=== PATIENT | male | born 1985 | race Caucasian/White ===

== ENCOUNTER 2022-12-20 12:41 | Inpatient (IN) ==
[2022-12-20] MEDS ORDERED: methylPREDNISolone 125 MG/2 ML VIAL IV STA (14:19)
[2022-12-20] MEDS ORDERED: ALBUT/IPRATROP 3MG/0.5MG NEB 3 ML VIAL NEB ONE (14:19)
[2022-12-20 14:25] LABS: Influenza A virus by PCR Negative (Neg); Influenza B virus by PCR Negative (Neg); RSV by PCR Negative (Neg); SARS CoV2 RNA(COVID-19) Ceph NEGATIVE (Negative)
--- NOTE | 2022-12-20 14:51 | Electrocardiogram Report ---
Test Reason : Blood Pressure : / mmHG Vent. Rate : 103 BPM Atrial Rate : 103 BPM P-R Int : 136 ms QRS Dur : 102 ms QT Int : 362 ms P-R-T Axes : 048 026 018 degrees QTc Int : 474 ms Sinus tachycardia Nonspecific T wave abnormality Abnormal ECG When compared with ECG of 28-APR-2022 10:38, No significant change was found Confirmed by Jorje Beach ([id number]) on 12/20/2022 2:51:06 PM Referred By: ED Confirmed By:Jorje Beach
[2022-12-20 14:59] LABS: Basophils # (auto) 0.03 K/uL (0-0.2); Basophils % (auto) 0.5 %; Eosinophils # (auto) 0.05 K/uL (0-0.50); Eosinophils % (auto) 0.9 %; Hematocrit (blood only) 44.5 % (42.0-52.0); Hemoglobin 14.9 g/dl (14.0-18.0); Immature Granulocytes # (auto) 0.02 K/uL (0.01-0.20); Immature Granulocytes % (auto) 0.3 %; Lymphocytes # (auto) 0.81 K/uL (1.2-3.4); Mean Corpuscular Hemoglobin 29.6 pg (25.0-34.0); Mean Corpuscular Hgb Conc 33.5 g/dL (32.0-36.0); Mean Corpuscular Volume 88.3 fL (80.0-100.0); Mean Platelet Volume 10.7 fL (9.4-12.4); Monocytes # (auto) 0.61 K/uL (0.11-0.59); Monocytes % (auto) 10.6 %; Neutrophils # (auto) 4.25 K/uL (1.40-6.50); Neutrophils % (auto) 73.7 %; Platelet Count 212 K/uL (130-400); RDW Coefficient of Variation 13.3 % (11.5-14.5); RDW Standard Deviation 43.4 fL (36.4-46.3); Red Blood Count 5.04 M/uL (4.70-6.10); White Blood Count 5.77 K/ul (4.8-10.8)
--- NOTE | 2022-12-20 15:12 | XRay Report ---
XR chest 1V portable HISTORY: Shortness of breath. Chest pain, nonspecific COMPARISON: Chest 04/28/2022. FINDINGS: No pneumothorax. No pleural effusions. There are low lung volumes. The cardiac silhouette r emains enlarged. No new focal lung consolidations to suggest a pneumonia. No evidence for pulmonary e elier. Stable lucent lesion within the medial right clavicle. IMPRESSION: No significant change compared to the prior study. No acute process. ACT 112: Negative or not required by law. Electronically signed by: Lenny Kellogg M.D. 12/20/2022 3:11 PM
[2022-12-20 15:30] LABS: Albumin Level 4.3 gm/dl (3.4-5.0); Calcium 9.8 mg/dl (8.5-10.1); Potassium 3.6 mmol/L (3.5-5.1)
[2022-12-20 15:36] LABS: Albumin Globulin Ratio 1.2 (0.9-2); BUN Creatinine Ratio 20.2 (10-20); Creatinine Clr Calc Pharmacy 138.9 ml/min; Est GFR (African American) 111.5 ml/min; Est GFR (Non-African American) 96.2 ml/min; Globulin 3.5 gm/dl (2.5-4.0); Total Protein 7.8 gm/dl (6.0-8.3); Troponin I High Sensitivity 5.3 pg/ml (0-20)
--- NOTE | 2022-12-20 15:52 | Emergency Department Note ---
Impression & Plan Pneumonia, Asthma, Shortness of breath ED Provider Note NAME: ANDRY BEAUCHAMP AGE: 37 SEX: M : 1985 ARRIVES VIA: Walk-In INFORMANT: Patient ED PROVIDER(S): Fabrice Glover DO CHIEF COMPLAINT: shortness of breath HPI: Patient is a 37-year-old male with a past medical history schizophrenia, asthma, hypertension, GERD who presents to the ER for cough congestion and shortness of breath which has been going on for the past month. He notes it has been getting worse. He did cough up some blood over the weekend. Shortness of breath is significantly worse with exertion. He admits to chest pain which has been present since this started which is mainly present with coughing. Shortness of breath is worse with coughing as well. Denies any belly pain nausea vomiting or diarrhea. Admits to a surgery on his left lower extremity back in last February. No other exacerbating or remitting factors. PAST MEDICAL HISTORY:See Below PAST SURGICAL HISTORY:See Below FAMILY HISTORY:See Below SOCIAL HISTORY:See Below HOME MEDICATIONS:See Below ALLERGIES:See Below VITALS:See Below PHYSICAL EXAMINATION: GENERAL: Sitting up in bed, alert, morbidly obese, disheveled, tachypneic and dyspneic EYE EXAM: normal conjunctiva. PERRL and EOM's grossly intact. OROPHARYNX: mucous membranes are moist LUNGS: Diminished bilaterally with poor air movement. Normal chest wall mechanics HEART: no murmurs, S1 normal and S2 normal ABDOMEN: abdomen soft, non-tender, normo-active bowel sounds, no masses, no rebound or guarding. UPPER EXTREMITIES: upper extremities are grossly normal. LOWER EXTREMITIES: Pitting edema in the bilateral lower extremities NEURO EXAM: Normal sensorium, cranial nerves II-XII grossly intact, normal speech, no gross weakness of arms, no gross weakness of legs. MEDICAL DECISION MAKING: Patient is a 37-year-old male with a past medical history of asthma that pr esents to the ER for cough congestion which has been present for the past month but getting significantly worse recently. External records were reviewed. IV was established blood work was obtained. Patient was tachycardic. Was tachypneic initially upon arrival. Was given neb treatments and steroids. Chest x-ray was clean. Labs show no significant leukocytosis or anemia. BMP was unremarkable. T. bili at 1.0. Mild transaminitis. Troponin was negative. COVID flu and RSV was negative. CT angio chest shows bronchogenic pneumonia. Patient was significantly tachypneic and tachycardic. Discussed with the [facility] and patient was admitted for further work-up management and treatment. Patient was given IV fluids nebs, steroids and antibiotics while here. Triage Nursing notes reviewed. Limited review of prior medical records performed Vital Signs: reviewed and remarkable for HTN and tachy Differential diagnosis: Differential diagnoses includes but is not limited to pneumonia, bronchitis, COPD/Asthma exacerbation, pneumothorax, pulmonary embolism, congestive heart failure, acute coronary syndrome ER treatment provided: See below Diagnostics interpreted by me include EKG and cardiac monitoring as listed below: -Cardiac Monitoring: An order was placed for continuous cardiac monitoring. The monitor shows a rate of 101 with sinus rhythm. -ECG: Sinus tachycardia rate of 103 Normal axis No PVCs QTc 474 -Laboratory studies:Interpreted by me as stated above in MDM and shown below. Imaging studies: Xrays: As interpreted by me: Portable AP upright 1 view of the chest was unremarkable CTs show: CT angio of the chest shows bronchopneumonia Consultation(s): Discussed with the [facility]ist for further evaluation management and treatment Procedures:none Critical Care: None Past Med/Surg History Medical History (Updated 12/20/22 @ 16:51 by Fabrice Glover DO) Asthma Well controlled GERD (gastroesophageal reflux disease) History of IBS Hypertension Hypothyroidism Paranoid schizophrenia Pneumonia Hx 2003 Post-nasal drip Seasonal allergies Sleep apnea No device currently Surgical History History of colonoscopy History of esophagogastroduodenoscopy (EGD) History of tonsillectomy Family History Other Adopted person Social History Smoking Status: Never smoker Second Hand Exposure: No; Hx Alcohol Use: No Hx Substance Use: No Preferred Language: Upper Sorbian Communication Ability: Effective 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 Goods Required: No Beliefs That Will Affect Care: None Current Living Situation: Alone Feels Safe at Home: Yes Assistive Devices: Brace/Splint/Immobilizer, Crutches and Glasses Allergies Allergies Allergy/AdvReac Type Severity Reaction Status Date / Time No Known Allergies Allergy Unknown Verified 04/09/22 08:17 Home Meds Home Medications Medication Instructions Recorded Confirmed albuterol sulfate 90 mcg/actuation 2 inh inhalation Q4H PRN sob 02/21/22 04/09/22 aerosol inhaler cannabidiol 100 mg/mL oral solution 90 mg PO DAILY PRN Pain 02/21/22 04/09/22 clozapine 50 mg tablet 50 mg PO HS 02/21/22 04/09/22 diphenhydramine HCl 25 mg tablet 25 mg PO HS PRN sleep/allergy 02/21/22 04/09/22 (Benadryl Allergy) famotidine 20 mg tablet 20 mg PO HS 02/21/22 04/09/22 fluticasone propionate 50 2 spray intranasal HS 02/21/22 04/09/22 mcg/actuation nasal spray,suspension guaifenesin 600 mg tablet, 600 mg PO BID 02/21/22 04/09/22 extended release 12 hr (Mucinex) hydrochlorothiazide 50 mg tablet 25 mg PO QAM 02/21/22 04/09/22 levothyroxine 25 mcg tablet 25 mcg PO QAM 02/21/22 04/09/22 (Synthroid) lisinopril 20 mg tablet 20 mg PO HS 02/21/22 04/09/22 loperamide 2 mg capsule 2 mg PO BID PRN Diarrhea 02/21/22 04/09/22 multivitamin 1 tab PO QAM 02/21/22 04/09/22 chlorpromazine 50 mg tablet 50 mg PO HS 04/09/22 04/09/22 diphenoxylate-atropine 2.5 1 tab PO QAM 04/09/22 04/09/22 mg-0.025 mg tablet pantoprazole 40 mg tablet,delayed 40 mg PO DAILY 05/26/22 release Previous Rx's Medication Instructions Recorded benzonatate 100 mg capsule 100 mg PO TID PRN cough #15 caps 04/28/22 Results & Data (ED) Vital Signs Vital Signs - 24 hr 12/20/22 13:02 12/20/22 15:40 12/20/22 15:40 Temperature 36.6 C Temperature Source Temporal Artery Scan Pulse Rate 105 H 105 H Pulse Rate from SpO2 Sensor 105 H Respiratory Rate 19 19 Blood Pressure 142/90 H 141/89 H Blood Pressure Mean 107 106 Pulse Oximetry 92 95 Oxygen Delivery Method Room Air Sepsis Recent Fever Within 48 Hours No Sepsis New/Unexplained Change in Mental Status No Sepsis Action Taken by Nursing No Action Required 12/20/22 15:50 12/20/22 16:36 Temperature Temperature Source Pulse Rate 101 H 105 H Pulse Rate from SpO2 Sensor 103 H Respiratory Rate 22 Blood Pressure Blood Pressure Mean Pulse Oximetry 96 Oxygen Delivery Method Sepsis Recent Fever Within 48 Hours Sepsis New/Unexplained Change in Mental Status Sepsis Action Taken by Nursing Laboratory Data 12/20/22 14:25 12/20/22 14:25 Lab Results 12/20/22 12/20/22 12/20/22 Range/Units 14:25 14:25 Unknown WBC 5.77 (4.8-10.8) K/ul RBC 5.04 (4.70-6.10) M/uL Hgb 14.9 (14.0-18.0) g/dl Hct 44.5 (42.0-52.0) % MCV 88.3 (80.0-100.0) fL MCH 29.6 (25.0-34.0) pg MCHC 33.5 (32.0-36.0) g/dL RDW Std Deviation 43.4 (36.4-46.3) fL RDW Coeff of Bere 13.3 (11.5-14.5) % Plt Count 212 (130-400) K/uL MPV 10.7 (9.4-12.4) fL Immature Gran % (Auto) 0.3 % Neut % (Auto) 73.7 % Lymph % (Auto) 14.0 % Lassen % (Auto) 10.6 % Eos % (Auto) 0.9 % Baso % (Auto) 0.5 % Neut # (Auto) 4.25 (1.40-6.50) K/uL Lymph # (Auto) 0.81 L (1.2-3.4) K/uL Lassen # (Auto) 0.61 H (0.11-0.59) K/uL Eos # (Auto) 0.05 (0-0.50) K/uL Baso # (Auto) 0.03 (0-0.2) K/uL Immature Gran # (Auto) 0.02 (0.01-0.20) K/uL Sodium 137 (136-145) mmol/L Potassium 3.6 (3.5-5.1) mmol/L Chloride 100 (98-107) mmol/L Carbon Dioxide 29 (21-32) mmol/L Anion Gap 8 (3-11) BUN 20 (6-23) mg/dl Creatinine 0.99 (0.6-1.4) mg/dl Est Cr Clr Drug Dosing 138.9 ml/min Est GFR ( Amer) 111.5 ml/min Est GFR (Non-Af Amer) 96.2 ml/min BUN/Creatinine Ratio 20.2 H (10-20) Glucose 101 H (70-99(Fasting)) mg/dl Calcium 9.8 (8.5-10.1) mg/dl Total Bilirubin 1.0 (0.2-1.0) mg/dl AST 42 H (13-39) U/L ALT 65 H (7-52) U/L Alkaline Phosphatase 79 (34-104) U/L Troponin I High Sens 5.3 (0-20) pg/ml Total Protein 7.8 (6.0-8.3) gm/dl Albumin 4.3 (3.4-5.0) gm/dl Globulin 3.5 (2.5-4.0) gm/dl Albumin/Globulin Ratio 1.2 (0.9-2) Lipase 11 (11-82) U/L SARS-CoV-2 (PCR) NEGATIVE (Negative) Influenza Type A (PCR) Negative (Neg) Influenza Type B (PCR) Negative (Neg) RSV (RT-PCR) Negative (Neg) Administered Medications Discontinued Medications Albuterol (Albut/Ipratrop 3mg/0.5mg Neb 3 Ml Vial) 12 ml NEB ONE ONE; Protocol Stop: 12/20/22 14:20 Last Admin: 12/20/22 15:00 Dose: 12 ml Documented By: JARAD Ioversol (Optiray 320 500ml) 99 ml IV ONCE ONE Stop: 12/20/22 16:08 Last Admin: 12/20/22 16:07 Dose: 99 ml Documented By: ROMULO Methylprednisolone (Methylprednisolone 125 Mg/2 Ml Vial) 60 mg IV NOW STA Stop: 12/20/22 14:20 Last Admin: 12/20/22 15:00 Dose: 60 mg Documented By: JARAD Imaging Data Radiologist's Impression: Chest X-Ray 12/20/22 14:12 XR chest 1V portable HISTORY: Shortness of breath. Chest pain, nonspecific COMPARISON: Chest 04/28/2022. FINDINGS: No pneumothorax. No pleural effusions. There are low lung volumes. The cardiac silhouette remains enlarged. No new focal lung consolidations to suggest a pneumonia. No evidence for pulmonary edema. Stable lucent lesion within the medial right clavicle. IMPRESSION: No significant change compared to the prior study. No acute process. ACT 112: Negative or not required by law. Electronically signed by: Lenny Kellogg M.D. 12/20/2022 3:11 PM Chest CTA 12/20/22 15:48 CT angio chest PE protocol CT DOSE: 891.67 mGy.cm HISTORY: 37 years-old Male with PE. Acute cough with shortness of breath TECHNIQUE: Multiple CTA images of the chest were obtained after the intravenous administration of 99 ml Optiray. Coronal and sagittal MIPS were obtained from the axial data set and were submitted for review. All measurements were obtained according to NASCET criteria. A dose lowering technique was utilized adhering to the principles of ALARA. COMPARISON: CTA chest 04/09/2022 FINDINGS: CTA: Heart is normal in size. No pericardial effusion. Unremarkable thoracic aorta. I ll-defined apparent filling defect is noted within the segmental branch of the pulmonary arteries to the lingula on image 140 series 4 which is likely artifactual. No occlusive pulmonary embolus identified. CT CHEST: Unremarkable thyroid. No lymphadenopathy. There is no pneumothorax or overt pulmonary edema. Mild bronchial wall thickening. Mild patchy nodular consolidative foci noted within the left lower lobe and lingula and to lesser extent right lower lobe. Central airways are patent. Hepatomegaly with hepatic steatosis. No acute process of the imaged upper abdomen. Unremarkable soft tissues. No acute fracture identified. Unchanged appearance of the mid and medial aspects of the right clavicle. Mild bridging osteophytic spurring throughout the thoracic spine. IMPRESSION: 1. Mild patchy left greater than right bibasilar nodular consolidative foci suggestive of bronchopneumonia. 2. No pulmonary emboli identified. 3. Hepatic steatosis. 4. No lymphadenopathy. ACT 112: Negative or not required by law. The above report was generated using voice recognition software. It may contain grammatical, syntax or spelling errors. Electronically signed by: Joseph Trujillo M.D. 12/20/2022 4:22 PM Discharge Plan Visit Data Chief Complaint: Cough Stated Complaint: REALLY NASTY COUGH, SHORT OF BREATH, CHEST PAIN ED Provider: Fabrice Glover Discharge Problem: Pneumonia, Asthma, Shortness of breath Forms Stand Alone Forms: [facility] Prescriptions Prescriptions: No Action pantoprazole 40 mg tablet,delayed release (DR/EC) 40 mg PO DAILY benzonatate 100 mg capsule 100 mg PO TID PRN (Reason: cough) Qty: 15 0RF multivitamin Tablet 1 tab PO QAM loperamide 2 mg Capsule 2 mg PO BID PRN (Reason: Diarrhea) hydrochlorothiazide 50 mg Tablet 25 mg PO QAM lisinopril 20 mg Tablet 20 mg PO HS levothyroxine [Synthroid] 25 mcg Tablet 25 mcg PO QAM famotidine 20 mg Tablet 20 mg PO HS diphenhydramine HCl [Benadryl Allergy] 25 mg Tablet 25 mg PO HS PRN (Reason: sleep/allergy) albuterol sulfate 90 mcg/actuation Hfa Aerosol Inhaler 2 inh INHALATION Q4H PRN (Reason: sob) fluticasone propionate 50 mcg/actuation [place],Suspension 2 spray INTRANASAL HS clozapine 50 mg Tablet 50 mg PO HS guaifenesin [Mucinex] 600 mg Tablet Extended Release 12hr 600 mg PO BID cannabidiol 100 mg/mL Solution 90 mg PO DAILY PRN (Reason: Pain) diphenoxylate-atropine 2.5-0.025 mg tablet 1 tab PO QAM chlorpromazine 50 mg tablet 50 mg PO HS Referrals Referrals: Kenia Oshea DO [Primary Care Provider] -
[2022-12-20] MEDS ORDERED: OPTIRAY 320 500ml IV ONE (16:07)
--- NOTE | 2022-12-20 16:24 | CT Scan Report ---
CT angio chest PE protocol CT DOSE: 891.67 mGy.cm HISTORY: 37 years-old Male with PE. Acute cough with shortness of breath TECHNIQUE: Multiple CTA images of the chest were obtained after the intravenous administration of 99 ml Optiray. Coronal and sagittal MIPS were obtained from the axial data set and were submitted for [employer]. All measurements were obtained according to NASCET criteria. A dose lowering technique was ut ilized adhering to the principles of ALARA. COMPARISON: CTA chest 04/09/2022 FINDINGS: CTA: Heart is normal in size. No pericardial effusion. Unremarkable thoracic aorta. Ill-defined apparent f illing defect is noted within the segmental branch of the pulmonary arteries to the lingula on image 140 series 4 which is likely artifactual. No occlusive pulmonary embolus identified. CT CHEST: Unremarkable thyroid. No lymphadenopathy. There is no pneumothorax or overt pulmonary edema. Mild bro nchial wall thickening. Mild patchy nodular consolidative foci noted within the left lower lobe and l ingula and to lesser extent right lower lobe. Central airways are patent. Hepatomegaly with hepatic steatosis. No acute process of the imaged upper abdomen. Unremarkable soft tissues. No acute fracture identified. Unchanged appearance of the mid and medial aspects of the righ t clavicle. Mild bridging osteophytic spurring throughout the thoracic spine. IMPRESSION: 1. Mild patchy left greater than right bibasilar nodular consolidative foci suggestive of bronchopneu monia. 2. No pulmonary emboli identified. 3. Hepatic steatosis. 4. No lymphadenopathy. ACT 112: Negative or not required by law. The above report was generated using voice recognition software. It may contain grammatical, syntax o r spelling errors. Electronically signed by: Joseph Trujillo M.D. 12/20/2022 4:22 PM
[2022-12-20] MEDS ORDERED: AZITHROMYCIN 500 MG in DEXTROSE 5% 250 ML IV SCH (16:40)
[2022-12-20] MEDS ORDERED: cefTRIAXone SODIUM 2,000 MG/70 ML BAG IV STA (16:40)
--- NOTE | 2022-12-20 17:27 | History & Physical Report ---
Date of Service December 20, 2022 Assessment & Plan (1) Pneumonia: (2) Asthma: (3) Hypertension: (4) Paranoid schizophrenia: (5) Morbid obesity with BMI of 45.0-49.9, adult: Plan This is a 37-year-old male who has significant past medical history of HTN, hypothyroidism, asthma, GERD, history of IBS, paranoid schizophrenia, sleep apnea and seasonal allergies who presents to ED secondary to cough x2 months. Bilateral bronchopneumonia Mild persistent asthma with mild exacerbation Admit to medical Continue IV antibiotics with 2 g Rocephin daily and doxycycline 100 mg twice daily Oral prednisone 40 mg daily for 5 days Albuterol nebulizer as needed Continue Advair Incentive spirometry Erick Patel Patient follows with [facility] pulmonology Obtain procalcitonin Hypertension Continue HCTZ and lisinopril BP mildly elevated in ED, will follow Sinus tachycardia Heart rate on the higher side in ED Possibly in setting of hour-long nebulizer treatment Repeat EKG in a.m. Paranoid schizophrenia Continue chlorpromazine Mood stable MICHELLE on BiPAP BiPAP Patient does not have device at home but willing to wear and how Morbid obesity BMI 46.9 Encourage weight loss Elevated LFTs CT chest revealed hepatic steatosis Has been elevated in the past Will need follow-up as outpatient and weight loss recommended DVT prophylaxis: Lovenox twice daily Dispo: Medical, continue IV antibiotics, suspect discharge in 1 to 2 days Full code PCP: Dayo A total of 45 minutes was spent with greater than 50% of that time personally viewing all current laboratory work and diagnostic imaging studies obtained in the ED. Additionally, I was able to view the patients past medication reconciliation and history with direct visualization in the patients chart. Included in the time above, a portion of that time was spent assessing the patient while discussing and collaborating with specialists, if necessary, and making medical decision making on treatment plan. All of the above was collaborated with Dr. Liz. Please see addendum for further details. History of Present Illness Chief Complaint: Cough x2 months Primary Care Provider: Kenia Oshea, This is a 37-year-old male who has significant past medical history of HTN, hypothyroidism, asthma, GERD, history of IBS, paranoid schizophrenia, sleep apnea and seasonal allergies who presents to ED secondary to cough x2 months. He reports a productive purulent cough since . He feels his cough is worsening and has been breaking up increasingly more mucus that is yellow. He also reports increasing shortness breath with exertion and at rest. He states he has history of pneumonia in the past requiring transfer down to [facility] to have a catheter placed in his lung to drain it. He states this feels similar. He also reports living in an apartment in which he recently noticed mold in the bathroom. He denies any fever, chills, sweats, lightheadedness, dizziness, chest pain, hemoptysis, nausea, vomiting, abdominal pain, change in bowel or urinary habits. He does report chest pain with coughing but otherwise is resolved. He also reports chronic diarrhea secondary to IBS for which she takes Lomotil and Imodium for. This is at baseline. Patient has been taking [id number] DayQuil and NyQuil religiously with minimal improvement in his symptoms. He also reports being followed by pulmonology who recently started him on Advair and azithromycin. He states he did not car supplier the azithromycin yet. He has started the Advair but is unsure if it is helping. He does have history of obstructive sleep apnea to be treated with BiPAP however he states he is still waiting on it.In ED patient was hemodynamically stable and was not requiring oxygen therapy. He did he did receive an hour-long nebulizer treatment, IV Solu-Medrol as well as IV antibiotics with Rocephin and azithromycin.Chest CT revealed mild patchy left greater than right basilar nodular consolidative foci suggestive of bronchopneumonia. Patient wished to be admitted. Allergies Allergy/AdvReac Type Severity Reaction Status Date / Time animal dander Allergy itchy Verified 12/20/22 17:15 house dust mite Allergy COUGH AND Verified 12/20/22 20:10 ITCHY EYES Home Medications Medication Instructions Recorded Confirmed Type albuterol sulfate 90 mcg/actuation 2 inh inhalation Q4H PRN sob 02/21/22 12/20/22 History aerosol inhaler diphenhydramine HCl 25 mg tablet 25 mg PO HS PRN sleep/allergy 02/21/22 12/20/22 History (Benadryl Allergy) famotidine 20 mg tablet 20 mg PO HS 02/21/22 12/20/22 History fluticasone propionate 50 2 spray intranasal HS 02/21/22 12/20/22 History mcg/actuation nasal spray,suspension levothyroxine 25 mcg tablet 25 mcg PO QAM 02/21/22 12/20/22 History (Synthroid) lisinopril 20 mg tablet 20 mg PO HS 02/21/22 12/20/22 History loperamide 2 mg capsule 2 mg PO BID PRN Diarrhea 02/21/22 12/20/22 History multivitamin 1 tab PO QAM 02/21/22 12/20/22 History chlorpromazine 50 mg tablet 50 mg PO HS 04/09/22 12/20/22 History diphenoxylate-atropine 2.5 1 tab PO QAM PRN Diarrhea 04/09/22 12/20/22 History mg-0.025 mg tablet benzonatate 100 mg capsule 100 mg PO TID PRN cough #15 caps 04/28/22 12/20/22 Rx fluticasone 250 mcg-salmeterol 50 1 inh inhalation BID 12/20/22 12/20/22 History mcg/dose blistr powdr for inhalation (Advair Diskus) hydrochlorothiazide 25 mg tablet 25 mg PO DAILY 12/20/22 12/20/22 History Past Med/Surg History Medical History Asthma Well controlled GERD (gastroesophageal reflux disease) History of IBS Hypertension Hypothyroidism Paranoid schizophrenia Pneumonia Hx 2003 Post-nasal drip Seasonal allergies Sleep apnea No device currently Surgical History History of colonoscopy History of esophagogastroduodenoscopy (EGD) History of tonsillectomy Hx of arthroscopic knee surgery L knee Family History Other Adopted person Social History Smoking Status: Never smoker Second Hand Exposure: No; Hx Alcohol Use: Yes Hx Substance Use: No Preferred Language: Bhutanese Communication Ability: Effective Manager Mission Required: No Beliefs That Will Affect Care: None Current Living Situation: Alone Other Information That Helps Us Care for You: No Feels Safe at Home: Yes Safety Concerns: Feels Safe At This Time Assistive Devices: Nebulizer Review of Systems Review of Systems: All systems reviewed & are unremarkable except as noted in HPI & below Physical Exam Physical Exam: Constitutional: WD/WN, obese, male, vitals as above, NAD, sitting up in bed, pleasant, conversing easily Head: Normocephalic, Atraumatic Eyes: PERRL, conjunctivae normal, anicteric sclerae ENMT: external ear and nose normal, oropharynx normal Neck: trachea midline, no thyromegaly normal visual inspection Respiratory: normal respiratory effort, lungs clear to auscultation, no wheeze, rales, rhonchi. Normal insp/exp effort, no accessory muscle use Cardiovascular: Tachycardic rate, regular rhythm, no murmur, no edema Vessels: no JVD or carotid bruit Chest: normal inspection of chest Abdomen: Protuberant obese abdomen, normal bowel sounds, soft, nontender, Musculoskeletal: no cyanosis or clubbing, extremities motor strength 5/5 Skin: no rashes, warm and dry normal turgor Neurologic: PERRL, EOMI, accommodation nl, no face palsy, no dysarthria CN's II-XI intact bilaterally and moves all extremities Psychiatric: A+Ox3, euthymic affect Lymphatic: no cervical or axillary lymphadenopathy : deferred Results & Data Results & Data ([facility]) Vital Signs (Past 12 Hours) Vital Signs Temp Pulse Resp BP Pulse Ox O2 Del Method 12/20/22 16:36 105 H 12/20/22 15:50 101 H 22 96 12/20/22 15:40 105 H 19 95 12/20/22 15:40 141/89 H 12/20/22 13:02 36.6 C 105 H 19 142/90 H 92 Room Air Diagnostic Findings Chest X-Ray 12/20/22 14:12 XR chest 1V portable HISTORY: Shortness of breath. Chest pain, nonspecific COMPARISON: Chest 04/28/2022. FINDINGS: No pneumothorax. No pleural effusions. There are low lung volumes. The cardiac silhouette remains enlarged. No new focal lung consolidations to suggest a pneumonia. No evidence for pulmonary edema. Stable lucent lesion within the medial right clavicle. IMPRESSION: No significant change compared to the prior study. No acute process. ACT 112: Negative or not required by law. Electronically signed by: Lenny Kellogg M.D. 12/20/2022 3:11 PM Chest CTA 12/20/22 15:48 CT angio chest PE protocol CT DOSE: 891.67 mGy.cm HISTORY: 37 years-old Male with PE. Acute cough with shortness of breath TECHNIQUE: Multiple CTA images of the chest were obtained after the intravenous administration of 99 ml Optiray. Coronal and sagittal MIPS were obtained from the axial data set and were submitted for review. All measurements were obtained according to NASCET criteria. A dose lowering technique was utilized adhering to the principles of ALARA. COMPARISON: CTA chest 04/09/2022 FINDINGS: CTA: Heart is normal in size. No pericardial effusion. Unremarkable thoracic aorta. Ill-defined apparent filling defect is noted within the segmental branch of the pulmonary arteries to the lingula on image 140 series 4 which is likely artifactual. No occlusive pulmonary embolus identified. CT CHEST: Unremarkable thyroid. No lymphadenopathy. There is no pneumothorax or overt pulmonary edema. Mild bronchial wall thickening. Mild patchy nodular consolidative foci noted within the left lower lobe and lingula and to lesser extent right lower lobe. Central airways are patent. Hepatomegaly with hepatic steatosis. No acute process of the imaged upper abdomen. Unremarkable soft tissues. No acute fracture identified. Unchanged a ppearance of the mid and medial aspects of the right clavicle. Mild bridging osteophytic spurring throughout the thoracic spine. IMPRESSION: 1. Mild patchy left greater than right bibasilar nodular consolidative foci suggestive of bronchopneumonia. 2. No pulmonary emboli identified. 3. Hepatic steatosis. 4. No lymphadenopathy. ACT 112: Negative or not required by law. The above report was generated using voice recognition software. It may contain grammatical, syntax or spelling errors. Electronically signed by: Joseph Trujillo M.D. 12/20/2022 4:22 PM Medications Administered Medication List Discontinued Medications Albuterol (Albut/Ipratrop 3mg/0.5mg Neb 3 Ml Vial) 12 ml NEB ONE ONE; Protocol Stop: 12/20/22 14:20 Last Admin: 12/20/22 15:00 Dose: 12 ml Documented By: JARAD Ceftriaxone Sodium (Rocephin) 2,000 mg in 70 mls @ 140 mls/hr IV NOW STA Stop: 12/20/22 17:09 Last Admin: 12/20/22 17:18 Dose: 140 mls/hr Documented By: YOHANNES Ioversol (Optiray 320 500ml) 99 ml IV ONCE ONE Stop: 12/20/22 16:08 Last Admin: 12/20/22 16:07 Dose: 99 ml Documented By: ROMULO Methylprednisolone (Methylprednisolone 125 Mg/2 Ml Vial) 60 mg IV NOW STA Stop: 12/20/22 14:20 Last Admin: 12/20/22 15:00 Dose: 60 mg Documented By: HG ECG Rate (beats per minute): 103 Rhythm: sinus tachycardia Additional Comments: QTc 4 7 4 ms, no significant change from 04/28/2022 EKG COVID-19 Results Results COVID-19 Adm Lab Results: RBC 4.75 M/uL (4.70-6.10) 12/21/22 WBC 5.60 K/ul (4.8-10.8) 12/21/22 Hgb 14.0 g/dl (14.0-18.0) 12/21/22 Hct 42.4 % (42.0-52.0) 12/21/22 Plt Count 206 K/uL (130-400) 12/21/22 Neutrophils (%) (Auto) 73.3 % 12/21/22 Lymphocytes (%) (Auto) 14.6 % 12/21/22 Monocytes # (Auto) 0.64 K/uL (0.11-0.59) H 12/21/22 Eosinophils # (Auto) 0.00 K/uL (0-0.50) 12/21/22 Immature Granulocyte % (Auto) 0.5 % 12/21/22 Neutrophils # (Auto) 4.10 K/uL (1.40-6.50) 12/21/22 Lymphocytes # (Auto) 0.82 K/uL (1.2-3.4) L 12/21/22 Monocytes # (Auto) 0.64 K/uL (0.11-0.59) H 12/21/22 Eosinophils # (Auto) 0.00 K/uL (0-0.50) 12/21/22 Basophils # (Auto) 0.01 K/uL (0-0.2) 12/21/22 Immature Granulocyte # (Auto) 0.03 K/uL (0.01-0.20) 03/01/2 3 Na 136 mmol/L (136-145) 12/21/22 K 4.3 mmol/L (3.5-5.1) 12/21/22 Cl 98 mmol/L (98-107) 12/21/22 CO2 34 mmol/L (21-32) H 12/21/22 Anion Gap 4 (3-11) 12/21/22 BUN 27 mg/dl (6-23) H 12/21/22 Creatinine 1.09 mg/dl (0.6-1.4) 12/21/22 BUN/Creatinine Ratio 24.8 (10-20) H 12/21/22 Glucose Level 138 mg/dl (70-99(Fasting)) H 12/21/22 Ca 9.7 mg/dl (8.5-10.1) 12/21/22 Total Bilirubin 0.7 mg/dl (0.2-1.0) 12/21/22 AST/SGOT 26 U/L (13-39) 12/21/22 ALT/SGPT 53 U/L (7-52) H 12/21/22 Alkaline Phosphatase 71 U/L (34-104) 12/21/22 Total Protein 7.7 gm/dl (6.0-8.3) 12/21/22 Albumin 4.2 gm/dl (3.4-5.0) 12/21/22 Globulin 3.5 gm/dl (2.5-4.0) 12/21/22 Albumin/Globulin Ratio 1.2 (0.9-2) 12/21/22 Procalcitonin < 0.05 ng/ml (0-0.5) 12/20/22 COVID-19 PCR NEGATIVE (Negative) 12/20/22 Influenza Virus Type A (PCR) Negative (Neg) 12/20/22 Influenza Virus Type B (PCR) Negative (Neg) 12/20/22 Micro Respiratory Specimen 12/20/22 Chest X-Ray 12/20/22 Code Status & VTE Plan Code Status Full code VTE Prophylaxis Plan VTE Prophylaxis will be ordered: Yes Supervising Physician Co-Signing Physician Notes Patient was seen and examined independently. Chart reviewed. Case discussed with EV. Agree with assessment and plan as above
[2022-12-20] MEDS ORDERED: MAGNESIUM HYDROXIDE SUSP 30 ML UDC PO PRN (20:04)
[2022-12-20] MEDS ORDERED: LOPERAMIDE HCL 2 MG CAP PO PRN (20:04)
[2022-12-20] MEDS ORDERED: ALUMINUM/MAGNESIUM SUSP 30 ML UDC PO PRN (20:04)
[2022-12-20] MEDS ORDERED: POLYETHYLENE (MIRALAX) 17 GM PACK PO PRN (20:04)
[2022-12-20] MEDS ORDERED: ACETAMINOPHEN 325 MG TAB PO PRN (20:04)
[2022-12-20] MEDS ORDERED: ONDANSETRON INJ 2 MG/ML 2 ML VIAL IV PRN (20:04)
[2022-12-20] MEDS ORDERED: DIPHENOXYLATE/ATROPINE 2.5/0.025MG TAB PO PRN (20:04)
[2022-12-20] MEDS ORDERED: FLUTICASONE/SALMETEROL 250/50 (ADVAIR) 14 PUFF/1 INHALER INH SCH (21:00)
[2022-12-20] MEDS: FAMOTIDINE 20 MG TAB PO SCH (21:09)
[2022-12-20] MEDS: BENZONATATE 100 MG CAPSULE PO SCH (21:10)
[2022-12-20] MEDS: ALBUTEROL 0.083% NEBU SOLN 3 ML VIAL NEB PRN (22:17)
[2022-12-20] MEDS: ENOXAPARIN INJ 40 MG/0.4 ML SYR SQ SCH ×2 (23:27→23:34)
[2022-12-20] MEDS: chlorproMAZINE HCL 25 MG TAB PO SCH (23:29)
[2022-12-20] MEDS: lisinopril 20 MG TAB PO SCH (23:29)
[2022-12-20] MEDS: FLUTICASONE PROPIONATE NA SPR 16 GM BTL SCH (23:30)
[2022-12-21 07:36] LABS: Basophils # (auto) 0.01 K/uL (0-0.2); Basophils % (auto) 0.2 %; Hematocrit (blood only) 42.4 % (42.0-52.0); Immature Granulocytes # (auto) 0.03 K/uL (0.01-0.20); Immature Granulocytes % (auto) 0.5 %; Lymphocytes # (auto) 0.82 K/uL (1.2-3.4); Lymphocytes % (auto) 14.6 %; Mean Corpuscular Hemoglobin 29.5 pg (25.0-34.0); Mean Corpuscular Volume 89.3 fL (80.0-100.0); Mean Platelet Volume 10.8 fL (9.4-12.4); Monocytes # (auto) 0.64 K/uL (0.11-0.59); Monocytes % (auto) 11.4 %; Neutrophils % (auto) 73.3 %; Platelet Count 206 K/uL (130-400); RDW Coefficient of Variation 13.4 % (11.5-14.5); Red Blood Count 4.75 M/uL (4.70-6.10)
[2022-12-21 07:50] LABS: Albumin Globulin Ratio 1.2 (0.9-2); Albumin Level 4.2 gm/dl (3.4-5.0); BUN Creatinine Ratio 24.8 (10-20); Bilirubin,Total 0.7 mg/dl (0.2-1.0); Calcium 9.7 mg/dl (8.5-10.1); Creatinine Clr Calc Pharmacy 126.7 ml/min; Est GFR (African American) 99.3 ml/min; Est GFR (Non-African American) 85.6 ml/min; Globulin 3.5 gm/dl (2.5-4.0); Magnesium 2.1 mg/dl (1.7-2.4); Potassium 4.3 mmol/L (3.5-5.1); Total Protein 7.7 gm/dl (6.0-8.3)
[2022-12-21] MEDS: SACCHAROMYCES BOULARDII 250 MG CAP PO SCH (08:48)
[2022-12-21] MEDS: hydroCHLOROthiazide 25 MG TAB PO SCH (08:48)
[2022-12-21] MEDS: LEVOTHYROXINE SODIUM 25 MCG TABLET PO SCH (08:48)
[2022-12-21] MEDS: predniSONE 20 MG TAB PO SCH (08:49)
[2022-12-21] MEDS: DOXYCYCLINE HYCLATE 100 MG CAP PO SCH ×2 (08:49→19:57)
[2022-12-21] MEDS: MULTIVITAMIN TAB PO SCH (08:49)
[2022-12-21] MEDS: FLUTICASONE/VILANTEROL 200/25MCG 14 PUFFS/INHALER INH SCH (08:50)
[2022-12-21] MEDS: BENZONATATE 100 MG CAPSULE PO SCH ×3 (08:51→19:58)
[2022-12-21] MEDS: cefTRIAXone SODIUM 2,000 MG in DEXTROSE 5% 50 ML IV SCH (08:54)
[2022-12-21] MEDS: ENOXAPARIN INJ 40 MG/0.4 ML SYR SQ SCH ×2 (09:32→19:59)
[2022-12-21] MEDS: ALBUTEROL 0.083% NEBU SOLN 3 ML VIAL NEB PRN ×3 (09:35→22:15)
[2022-12-21] MEDS: oxyCODONE HCL IR 5 MG TAB (IMMEDIATE RELEASE) PO PRN (10:31)
--- NOTE | 2022-12-21 15:13 | Hospitalist Progress Note ---
Date of Service December 21, 2022 Assessment & Plan (1) Pneumonia: (2) Asthma: (3) Hypertension: (4) Paranoid schizophrenia: (5) Morbid obesity with BMI of 45.0-49.9, adult: Plan Patient is a 37 yr male with H/O HTN, hypothyroidism, asthma, GERD, history of IBS, paranoid schizophrenia, sleep apnea and seasonal allergies who presents to ED secondary to cough x2 months. Bilateral bronchopneumonia Mild persistent asthma with mild exacerbation --CTA:Mild patchy left greater than right bibasilar nodular consolidative foci suggestive of bronchopneumonia. No pulmonary emboli identified. Hepatic steatosis. No lymphadenopathy. --Procalcitonin< 0.05 --Sputum culture pending Continue ceftriaxone, doxycycline Continue nebs, steroids Pulmonary hygiene Antitussives as needed Hypertension Continue HCTZ and lisinopril Monitor Paranoid schizophrenia Continue chlorpromazine Mood stable MICHELLE on BiPAP BiPAP Morbid obesity BMI 46.9 Encourage weight loss Elevated LFTs Likely due to hepatic steatosis Lifestyle modifications Monitor DVT Px: Lovenox SQ Code Status Full code Admission and Anticipated Discharge Date Admission Date: December 20, 2022 Subjective Patient is seen and examined at bedside States having cough with expectoration Also reports chest soreness from coughing Has dyspnea on exertion No other complaints Saturating low 90s on room air Review of Systems Review of Systems: All systems reviewed & are unremarkable except as noted in Subjective Physical Exam Physical Exam: Physical Exam: Vitals signs as noted above General Appearance:Morbidly Obese, no apparent distress Head: normocephalic, Atraumatic Eyes: normal inspection, EOMI Neck: supple, Trachea midline Respiratory/Chest: Decreased breath sounds, CTA, No accessory muscle use Cardiovascular: S1, S2, No murmur Abdomen/GI:Soft, Non tender, Bowel sounds present Extremities/Musculoskeletal:normal inspection, Trace pedal edema Neurologic/Psych:AAOX3, grossly no focal neurological deficits Skin: normal color, warm Results & Data Results & Data ([facility]) Vital Signs (Past 12 Hours) Vital Signs Temp Pulse Resp BP Pulse Ox O2 Del Method O2 Flow Rate 12/21/22 13:24 104 H 18 92 Room Air 12/21/22 10:29 36.5 C 94 H 18 123/66 97 Nasal Cannula 3 12/21/22 09:30 Nasal Cannula 3 12/21/22 09:35 111 H 20 92 Nasal Cannula 3 12/21/22 08:46 36.7 C 104 H 18 139/73 93 Nasal Cannula 3 12/21/22 08:41 36.9 C 111 H 20 143/91 H 92 Room Air Laboratory Results Short CBC 12/21/22 Range/Units 06:44 WBC 5.60 (4.8-10.8) K/ul Hgb 14.0 (14.0-18.0) g/dl Hct 42.4 (42.0-52.0) % Plt Count 206 (130-400) K/uL BMP 12/20/22 12/21/22 14:25 06:44 Sodium 137 136 Potassium 3.6 4.3 Chloride 100 98 Carbon Dioxide 29 34 H BUN 20 27 H Creatinine 0.99 1.09 Glucose 101 H 138 H Calcium 9.8 9.7 Liver Function 12/20/22 12/21/22 Range/Units 14:25 06:44 Total Bilirubin 1.0 0.7 (0.2-1.0) mg/dl AST 42 H 26 (13-39) U/L ALT 65 H 53 H (7-52) U/L Alkaline Phosphatase 79 71 (34-104) U/L Albumin 4.3 4.2 (3.4-5.0) gm/dl
--- NOTE | 2022-12-21 15:36 | Electrocardiogram Report ---
Test Reason : Blood Pressure : / mmHG Vent. Rate : 082 BPM Atrial Rate : 082 BPM P-R Int : 166 ms QRS Dur : 118 ms QT Int : 384 ms P-R-T Axes : 035 027 -05 degrees QTc Int : 448 ms Normal sinus rhythm Non-specific intra-ventricular conduction delay Nonspecific T wave abnormality Abnormal ECG When compared with ECG of 20-DEC-2022 14:22, No significant change was found Confirmed by Jorje Beach ([id number]) on 12/21/2022 3:36:08 PM Referred By: REFERRED SELF Confirmed By:Jorje Beach
[2022-12-21] MEDS: FLUTICASONE PROPIONATE NA SPR 16 GM BTL SCH (19:55)
[2022-12-21] MEDS: FAMOTIDINE 20 MG TAB PO SCH (19:56)
[2022-12-21] MEDS: lisinopril 20 MG TAB PO SCH (19:57)
[2022-12-21] MEDS: chlorproMAZINE HCL 25 MG TAB PO SCH (19:58)
[2022-12-22] MEDS: BENZONATATE 100 MG CAPSULE PO SCH ×3 (07:52→20:15)
[2022-12-22 09:13] LABS: Hematocrit (blood only) 44.6 % (42.0-52.0); Hemoglobin 14.9 g/dl (14.0-18.0); Mean Corpuscular Hemoglobin 29.5 pg (25.0-34.0); Mean Corpuscular Hgb Conc 33.4 g/dL (32.0-36.0); Mean Corpuscular Volume 88.3 fL (80.0-100.0); Mean Platelet Volume 10.6 fL (9.4-12.4); Platelet Count 221 K/uL (130-400); RDW Coefficient of Variation 13.8 % (11.5-14.5); Red Blood Count 5.05 M/uL (4.70-6.10); White Blood Count 7.85 K/ul (4.8-10.8)
[2022-12-22] MEDS: FLUTICASONE/VILANTEROL 200/25MCG 14 PUFFS/INHALER INH SCH (09:43)
[2022-12-22] MEDS: DOXYCYCLINE HYCLATE 100 MG CAP PO SCH ×2 (09:43→20:15)
[2022-12-22 09:44] LABS: Calcium 9.4 mg/dl (8.5-10.1); Creatinine Clr Calc Pharmacy 138.2 ml/min; Est GFR (African American) 110.2 ml/min; Est GFR (Non-African American) 95.1 ml/min; Magnesium 2.1 mg/dl (1.7-2.4); Potassium 3.4 mmol/L (3.5-5.1)
[2022-12-22] MEDS: MULTIVITAMIN TAB PO SCH (09:44)
[2022-12-22] MEDS: LEVOTHYROXINE SODIUM 25 MCG TABLET PO SCH (09:44)
[2022-12-22] MEDS: SACCHAROMYCES BOULARDII 250 MG CAP PO SCH (09:45)
[2022-12-22] MEDS: predniSONE 20 MG TAB PO SCH (09:45)
[2022-12-22] MEDS: hydroCHLOROthiazide 25 MG TAB PO SCH (09:46)
[2022-12-22] MEDS: cefTRIAXone SODIUM 2,000 MG in DEXTROSE 5% 50 ML IV SCH (09:49)
[2022-12-22] MEDS: ENOXAPARIN INJ 40 MG/0.4 ML SYR SQ SCH ×2 (09:56→20:16)
[2022-12-22] MEDS: ALBUTEROL 0.083% NEBU SOLN 3 ML VIAL NEB PRN ×2 (10:05→20:34)
[2022-12-22] MEDS ORDERED: POTASSIUM CHLORIDE CRTAB 20 MEQ TABCR PO ONE (10:55)
[2022-12-22] MEDS: oxyCODONE HCL IR 5 MG TAB (IMMEDIATE RELEASE) PO PRN ×2 (12:05→20:24)
--- NOTE | 2022-12-22 16:07 | Hospitalist Progress Note ---
Date of Service December 22, 2022 Assessment & Plan (1) Pneumonia: (2) Asthma: (3) Hypertension: (4) Paranoid schizophrenia: (5) Morbid obesity with BMI of 45.0-49.9, adult: Plan Patient is a 37 yr male with H/O HTN, hypothyroidism, asthma, GERD, history of IBS, paranoid schizophrenia, sleep apnea and seasonal allergies who presents to ED secondary to cough x2 months. Bilateral bronchopneumonia Mild persistent asthma with mild exacerbation Hypoxia secondary to above --CTA:Mild patchy left greater than right bibasilar nodular consolidative foci suggestive of bronchopneumonia. No pulmonary emboli identified. Hepatic steatosis. No lymphadenopathy. --Procalcitonin< 0.05 --Sputum culture: Moderate normal jenaro Continue ceftriaxone, doxycycline Continue nebs, steroids Pulmonary hygiene Antitussives as needed Weaned off of supplemental oxygen Saturating well on room air May need 2 step prior to discharge Hypertension Continue HCTZ and lisinopril Monitor Paranoid schizophrenia Continue chlorpromazine Mood stable MICHELLE on BiPAP BiPAP Morbid obesity BMI 46.9 Encourage weight loss Elevated LFTs Likely due to hepatic steatosis Lifestyle modifications Monitor DVT Px: Lovenox SQ Code Status Full code Admission and Anticipated Discharge Date Admission Date: December 20, 2022 Subjective Patient is seen and examined at bedside Less cough, dyspnea today States having intermittent wheezing No new complaints Expectoration more clear today Weaned off of supplemental oxygen Denies any chest pain, dizziness, nausea, vomiting, abdominal pain Review of Systems Review of Systems: All systems reviewed & are unremarkable except as noted in Subjective Physical Exam Physical Exam: Physical Exam: Vitals signs as noted above General Appearance:Morbidly Obese, no apparent distress Head: normocephalic, Atraumatic Eyes: normal inspection, EOMI Neck: supple, Trachea midline Respiratory/Chest: Decreased breath sounds, scattered wheezes, No accessory muscle use Cardiovascular: S1, S2, No murmur Abdomen/GI:Soft, Non tender, Bowel sounds present Extremities/Musculoskeletal:normal inspection, Trace pedal edema Neurologic/Psych:AAOX3, grossly no focal neurological deficits Skin: normal color, warm Results & Data Results & Data ([facility]) Vital Signs (Past 12 Hours) Vital Signs Temp Pulse Pulse Resp BP BP Pulse Ox 12/22/22 15:29 37.0 C 99 H 20 132/90 95 12/22/22 12:03 12/22/22 10:06 113 H 18 98 12/22/22 07:53 12/22/22 07:05 36.6 C 95 H 20 136/87 94 O2 Del Method O2 Flow Rate 12/22/22 15:29 Room Air 12/22/22 12:03 Room Air 12/22/22 10:06 Nasal Cannula 2 12/22/22 07:53 Nasal Cannula 2 12/22/22 07:05 Nasal Cannula 2 Laboratory Results Short CBC 12/22/22 Range/Units 08:46 WBC 7.85 (4.8-10.8) K/ul Hgb 14.9 (14.0-18.0) g/dl Hct 44.6 (42.0-52.0) % Plt Count 221 (130-400) K/uL BMP 12/22/22 08:46 Sodium 138 Potassium 3.4 L D Chloride 100 Carbon Dioxide 32 BUN 31 H Creatinine 1.00 Glucose 89 Calcium 9.4
[2022-12-22] MEDS: lisinopril 20 MG TAB PO SCH (20:15)
[2022-12-22] MEDS: chlorproMAZINE HCL 25 MG TAB PO SCH (20:15)
[2022-12-22] MEDS: FLUTICASONE PROPIONATE NA SPR 16 GM BTL SCH (20:16)
[2022-12-22] MEDS: FAMOTIDINE 20 MG TAB PO SCH (20:16)
[2022-12-23 08:06] LABS: BUN Creatinine Ratio 28.2 (10-20); Calcium 9.4 mg/dl (8.5-10.1); Creatinine Clr Calc Pharmacy 118.1 ml/min; Est GFR (African American) 91.1 ml/min; Est GFR (Non-African American) 78.6 ml/min
[2022-12-23] MEDS: oxyCODONE HCL IR 5 MG TAB (IMMEDIATE RELEASE) PO PRN (08:08)
[2022-12-23] MEDS: DOXYCYCLINE HYCLATE 100 MG CAP PO SCH ×2 (08:10→20:22)
[2022-12-23] MEDS: BENZONATATE 100 MG CAPSULE PO SCH ×3 (08:10→20:22)
[2022-12-23] MEDS: FLUTICASONE/VILANTEROL 200/25MCG 14 PUFFS/INHALER INH SCH (08:10)
[2022-12-23] MEDS: hydroCHLOROthiazide 25 MG TAB PO SCH (08:11)
[2022-12-23] MEDS: LEVOTHYROXINE SODIUM 25 MCG TABLET PO SCH (08:11)
[2022-12-23] MEDS: predniSONE 20 MG TAB PO SCH (08:12)
[2022-12-23] MEDS: MULTIVITAMIN TAB PO SCH (08:12)
[2022-12-23] MEDS: SACCHAROMYCES BOULARDII 250 MG CAP PO SCH (08:13)
[2022-12-23] MEDS: ENOXAPARIN INJ 40 MG/0.4 ML SYR SQ SCH ×2 (08:13→21:01)
[2022-12-23] MEDS: cefTRIAXone SODIUM 2,000 MG in DEXTROSE 5% 50 ML IV SCH (10:12)
--- NOTE | 2022-12-23 11:53 | Electrocardiogram Report ---
Test Reason : Blood Pressure : / mmHG Vent. Rate : 090 BPM Atrial Rate : 090 BPM P-R Int : 160 ms QRS Dur : 102 ms QT Int : 378 ms P-R-T Axes : 064 039 -34 degrees QTc Int : 462 ms Normal sinus rhythm Prolonged QT Abnormal ECG When compared with ECG of 21-DEC-2022 07:57, No significant change was found Confirmed by Jorje Beach ([id number]) on 12/23/2022 11:53:08 AM Referred By: REFERRED SELF Confirmed By:Jorje Beach
--- NOTE | 2022-12-23 16:42 | Hospitalist Progress Note ---
Date of Service December 23, 2022 Assessment & Plan (1) Pneumonia: (2) Asthma: (3) Hypertension: (4) Paranoid schizophrenia: (5) Morbid obesity with BMI of 45.0-49.9, adult: Plan Patient is a 37 yr male with H/O HTN, hypothyroidism, asthma, GERD, history of IBS, paranoid schizophrenia, sleep apnea and seasonal allergies who presents to ED secondary to cough x2 months. Bilateral bronchopneumonia Mild persistent asthma with mild exacerbation Hypoxia secondary to above --CTA:Mild patchy left greater than right bibasilar nodular consolidative foci suggestive of bronchopneumonia. No pulmonary emboli identified. Hepatic steatosis. No lymphadenopathy. --Procalcitonin< 0.05 --Sputum culture: Moderate normal jenaro Continue ceftriaxone, doxycycline Continue nebs, steroids Pulmonary hygiene Antitussives as needed Weaned off of supplemental oxygen Saturating well on room air 2 step: Did not qualify for oxygen Plan to discharge home tomorrow Hypertension Continue HCTZ and lisinopril Monitor Paranoid schizophrenia Continue chlorpromazine Mood stable MICHELLE on BiPAP BiPAP Morbid obesity BMI 46.9 Encourage weight loss Elevated LFTs Likely due to hepatic steatosis Lifestyle modifications Monitor DVT Px: Lovenox SQ Code Status Full code Admission and Anticipated Discharge Date Admission Date: December 20, 2022 Subjective Patient is seen and examined at bedside Feels better today States feeling not ready for discharge today Dyspnea much improved Reports some cough associated with chest discomfort Had 2 step earlier today Denies any dizziness, nausea, vomiting, abdominal pain Afebrile today Saturating low 90s on room Review of Systems 2 Review of Systems: All systems reviewed & are unremarkable except as noted in Subjective Physical Exam Physical Exam: Physical Exam: Vitals signs as noted above General Appearance:Morbidly Obese, no apparent distress Head: normocephalic, Atraumatic Eyes: normal inspection, EOMI Neck: supple, Trachea midline Respiratory/Chest: Decreased breath sounds, CTA, No accessory muscle use Cardiovascular: S1, S2, No murmur Abdomen/GI:Soft, Non tender, Bowel sounds present Extremities/Musculoskeletal:normal inspection, Trace pedal edema Neurologic/Psych:AAOX3, grossly no focal neurological deficits Skin: normal color, warm Results & Data Results & Data ([facility]) Vital Signs (Past 12 Hours) Vital Signs Temp Pulse Pulse Pulse Pulse Pulse Resp 12/23/22 14:40 36.8 C 84 18 03/03/23 07:43 112 H 116 H 113 H 12/23/22 07:19 36.5 C 94 H 18 Resp Resp Resp BP Pulse Ox Pulse Ox Pulse Ox 12/23/22 14:40 160/97 H 94 12/23/22 07:43 22 22 20 93 94 12/23/22 07:19 113/65 100 Pulse Ox O2 Del Method O2 Flow Rate 12/23/22 14:40 Room Air 12/23/22 07:43 95 12/23/22 07:19 Nasal Cannula 2 Laboratory Results [facility] 12/23/22 06:44 Sodium 137 Potassium 4.0 Chloride 99 Carbon Dioxide 34 H BUN 33 H Creatinine 1.17 Glucose 84 Calcium 9.4
[2022-12-23] MEDS: chlorproMAZINE HCL 25 MG TAB PO SCH (20:22)
[2022-12-23] MEDS: FLUTICASONE PROPIONATE NA SPR 16 GM BTL SCH (20:22)
[2022-12-23] MEDS: FAMOTIDINE 20 MG TAB PO SCH (20:22)
[2022-12-23] MEDS: lisinopril 20 MG TAB PO SCH (20:23)
[2022-12-23] MEDS: ALBUTEROL 0.083% NEBU SOLN 3 ML VIAL NEB PRN (20:40)
[2022-12-24 07:36] LABS: Hematocrit (blood only) 44.2 % (42.0-52.0); Hemoglobin 14.9 g/dl (14.0-18.0); Mean Corpuscular Hemoglobin 29.6 pg (25.0-34.0); Mean Corpuscular Hgb Conc 33.7 g/dL (32.0-36.0); Mean Corpuscular Volume 87.9 fL (80.0-100.0); Mean Platelet Volume 10.8 fL (9.4-12.4); Platelet Count 218 K/uL (130-400); RDW Coefficient of Variation 13.6 % (11.5-14.5); RDW Standard Deviation 43.8 fL (36.4-46.3); Red Blood Count 5.03 M/uL (4.70-6.10); White Blood Count 8.38 K/ul (4.8-10.8)
[2022-12-24 08:39] LABS: Calcium 9.5 mg/dl (8.5-10.1); Potassium 3.7 mmol/L (3.5-5.1)
[2022-12-24 08:44] LABS: BUN Creatinine Ratio 27.7 (10-20); Creatinine Clr Calc Pharmacy 123.4 ml/min; Est GFR (African American) 96.1 ml/min; Est GFR (Non-African American) 82.9 ml/min
[2022-12-24] MEDS: BENZONATATE 100 MG CAPSULE PO SCH (08:45)
[2022-12-24] MEDS: hydroCHLOROthiazide 25 MG TAB PO SCH (08:45)
[2022-12-24] MEDS: DOXYCYCLINE HYCLATE 100 MG CAP PO SCH (08:45)
[2022-12-24] MEDS: predniSONE 20 MG TAB PO SCH (08:46)
[2022-12-24] MEDS: LEVOTHYROXINE SODIUM 25 MCG TABLET PO SCH (08:46)
[2022-12-24] MEDS: MULTIVITAMIN TAB PO SCH (08:46)
[2022-12-24] MEDS: SACCHAROMYCES BOULARDII 250 MG CAP PO SCH (08:46)
[2022-12-24] MEDS: FLUTICASONE/VILANTEROL 200/25MCG 14 PUFFS/INHALER INH SCH (08:46)
[2022-12-24] MEDS: cefTRIAXone SODIUM 2,000 MG in DEXTROSE 5% 50 ML IV SCH (08:53)
[2022-12-24] MEDS: ENOXAPARIN INJ 40 MG/0.4 ML SYR SQ SCH (11:26)
--- NOTE | 2022-12-24 14:17 | Discharge Summary ---
Date of Service December 24, 2022 Admission HPI Per Admitting Provider This is a 37-year-old male who has significant past medical history of HTN, hypothyroidism, asthma, GERD, history of IBS, paranoid schizophrenia, sleep apnea and seasonal allergies who presents to ED secondary to cough x2 months. He reports a productive purulent cough since Luis Daniel. He feels his cough is worsening and has been breaking up increasingly more mucus that is yellow. He also reports increasing shortness breath with exertion and at rest. He states he has history of pneumonia in the past requiring transfer down to [facility] to have a catheter placed in his lung to drain it. He states this feels similar. He also reports living in an apartment in which he recently noticed mold in the bathroom. He denies any fever, chills, sweats, lightheadedness, dizziness, chest pain, hemoptysis, nausea, vomiting, abdominal pain, change in bowel or urinary habits. He does report chest pain with coughing but otherwise is resolved. He also reports chronic diarrhea secondary to IBS for which she takes Lomotil and Imodium for. This is at baseline. Patient has been taking [id number] DayQuil and NyQuil religiously with minimal improvement in his symptoms. He also reports being followed by pulmonology who recently started him on Advair and azithromycin. 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 He has started the Advair but is unsure if it is helping. He does have history of obstructive sleep apnea to be treated with BiPAP however he states he is still waiting on it.In ED patient was hemodynamically stable and was not requiring oxygen therapy. He did he did receive an hour-long nebulizer treatment, IV Solu-Medrol as well as IV antibiotics with Rocephin and azithromycin.Chest CT revealed mild patchy left greater than right basilar nodular consolidative foci suggestive of bronchopneumonia. Patient wished to be admitted. Admission Exam Per Admitting Provider Constitutional: WD/WN, obese, male, vitals as above, NAD, sitting up in bed, pleasant, conversing easily Head: Normocephalic, Atraumatic Eyes: PERRL, conjunctivae normal, anicteric sclerae ENMT: external ear and nose normal, oropharynx normal Neck: trachea midline, no thyromegaly normal visual inspection Respiratory: normal respiratory effort, lungs clear to auscultation, no wheeze, rales, rhonchi. Normal insp/exp effort, no accessory muscle use Cardiovascular: Tachycardic rate, regular rhythm, no murmur, no edema Vessels: no JVD or carotid bruit Chest: normal inspection of chest Abdomen: Protuberant obese abdomen, normal bowel sounds, soft, nontender, Musculoskeletal: no cyanosis or clubbing, extremities motor strength 5/5 Skin: no rashes, warm and dry normal turgor Neurologic: PERRL, EOMI, accommodation nl, no face palsy, no dysarthria CN's II-XI intact bilaterally and moves all extremities Psychiatric: A+Ox3, euthymic affect Lymphatic: no cervical or axillary lymphadenopathy : deferred Principal Diagnosis Bronchopneumonia Asthma exacerbation Hypoxia, resolved Discharge Exam Constitutional + obese; no acute distress Respiratory normal respiratory effort; no respiratory distress Auscultation: + diminished lung sounds; no crackles, no rhonchi and no wheezes Cardiovascular Rate/Rhythm: regular rate and regular rhythm Vessels: normal peripheral pulses Extremities: no edema Gastrointestinal (Abdomen) Percussion/Palpation: abdomen soft; abdomen nontender Skin no rashes, warm and dry Neurologic no focal motor deficits Psychiatric A+Ox3, euthymic affect Discharge Data Allergies Allergy/AdvReac Type Severity Reaction Status Date / Time animal dander Allergy itchy Verified 12/20/22 17:15 house dust mite Allergy COUGH AND Verified 12/20/22 20:10 ITCHY EYES Ordered Studies Laboratory Results WBC 8.38 K/ul (4.8-10.8) 12/24/22 06:54 RBC 5.03 M/uL (4.70-6.10) 12/24/22 06:54 Hgb 14.9 g/dl (14.0-18.0) 12/24/22 06:54 Hct 44.2 % (42.0-52.0) 12/24/22 06:54 MCV 87.9 fL (80.0-100.0) 12/24/22 06:54 MCH 29.6 pg (25.0-34.0) 12/24/22 06:54 MCHC 33.7 g/dL (32.0-36.0) 12/24/22 06:54 RDW Std Deviation 43.8 fL (36.4-46.3) 12/24/22 06:54 RDW Coeff of Bere 13.6 % (11.5-14.5) 12/24/22 06:54 Plt Count 218 K/uL (130-400) 12/24/22 06:54 MPV 10.8 fL (9.4-12.4) 12/24/22 06:54 Immature Gran % (Auto) 0.5 % 12/21/22 06:44 Neut % (Auto) 73.3 % 12/21/22 06:44 Lymph % (Auto) 14.6 % 12/21/22 06:44 Johnson % (Auto) 11.4 % 12/21/22 06:44 Eos % (Auto) 0.0 % 12/21/22 06:44 Baso % (Auto) 0.2 % 12/21/22 06:44 Neut # (Auto) 4.10 K/uL (1.40-6.50) 12/21/22 06:44 Lymph # (Auto) 0.82 K/uL (1.2-3.4) L 12/21/22 06:44 Johnson # (Auto) 0.64 K/uL (0.11-0.59) H 12/21/22 06:44 Eos # (Auto) 0.00 K/uL (0-0.50) 12/21/22 06:44 Baso # (Auto) 0.01 K/uL (0-0.2) 12/21/22 06:44 Immature Gran # (Auto) 0.03 K/uL (0.01-0.20) 12/21/22 06:44 Sodium 138 mmol/L (136-145) 12/24/22 06:54 Potassium 3.7 mmol/L (3.5-5.1) 12/24/22 06:54 Chloride 100 mmol/L (98-107) 12/24/22 06:54 Carbon Dioxide 32 mmol/L (21-32) 12/24/22 06:54 Anion Gap 6 (3-11) 12/24/22 06:54 BUN 31 mg/dl (6-23) H 12/24/22 06:54 Creatinine 1.12 mg/dl (0.6-1.4) 12/24/22 06:54 Est Cr Clr Drug Dosing 123.4 ml/min 12/24/22 06:54 Est GFR ( Amer) 96.1 ml/min 12/24/22 06:54 Est GFR (Non-Af Amer) 82.9 ml/min 12/24/22 06:54 BUN/Creatinine Ratio 27.7 (10-20) H 12/24/22 06:54 Glucose 82 mg/dl (70-99(Fasting)) 12/24/22 06:54 Calcium 9.5 mg/dl (8.5-10.1) 12/24/22 06:54 Magnesium 2.1 mg/dl (1.7-2.4) 12/22/22 08:46 Total Bilirubin 0.7 mg/dl (0.2-1.0) 12/21/22 06:44 AST 26 U/L (13-39) 12/21/22 06:44 ALT 53 U/L (7-52) H 12/21/22 06:44 Alkaline Phosphatase 71 U/L (34-104) 12/21/22 06:44 Troponin I High Sens 5.3 pg/ml (0-20) 12/20/22 14:25 Total Protein 7.7 gm/dl (6.0-8.3) 12/21/22 06:44 Albumin 4.2 gm/dl (3.4-5.0) 12/21/22 06:44 Globulin 3.5 gm/dl (2.5-4.0) 12/21/22 06:44 Albumin/Globulin Ratio 1.2 (0.9-2) 12/21/22 06:44 Lipase 11 U/L (11-82) 12/20/22 14:25 Procalcitonin < 0.05 ng/ml (0-0.5) 12/20/22 14:25 SARS-CoV-2 (PCR) NEGATIVE (Negative) 12/20/22 Unknown Influenza Type A (PCR) Negative (Neg) 12/20/22 Unknown Influenza Type B (PCR) Negative (Neg) 12/20/22 Unknown RSV (RT-PCR) Negative (Neg) 12/20/22 Unknown Impressions Chest X-Ray 12/20/22 14:12 XR chest 1V portable HISTORY: Shortness of breath. Chest pain, nonspecific COMPARISON: Chest 04/28/2022. FINDINGS: No pneumothorax. No pleural effusions. There are low lung volumes. The cardiac silhouette remains enlarged. No new focal lung consolidations to suggest a pneumonia. No evidence for pulmonary edema. Stable lucent lesion within the medial right clavicle. IMPRESSION: No significant change compared to the prior study. No acute process. ACT 112: Negative or not required by law. Electronically signed by: Lenny Kellogg M.D. 12/20/2022 3:11 PM Chest CTA 12/20/22 15:48 CT angio chest PE protocol CT DOSE: 891.67 mGy.cm HISTORY: 37 years-old Male with PE. Acute cough with shortness of breath TECHNIQUE: Multiple CTA images of the chest were obtained after the intravenous administration of 99 ml Optiray. Coronal and sagittal MIPS were obtained from the axial data set and were submitted for review. All measurements were obtained according to NASCET criteria. A dose lowering technique was utilized adhering to the principles of ALARA. COMPARISON: CTA chest 04/09/2022 FINDINGS: CTA: Heart is normal in size. No pericardial effusion. Unremarkable thoracic aorta. Ill-defined apparent filling defect is noted within the segmental branch of the pulmonary arteries to the lingula on image 140 series 4 which is likely artifactual. No occlusive pulmonary embolus identified. CT CHEST: Unremarkable thyroid. No lymphadenopathy. There is no pneumothorax or overt pulmonary edema. Mild bronchial wall thickening. Mild patchy nodular consolidative foci noted within the left lower lobe and lingula and to lesser extent right lower lobe. Central airways are patent. Hepatomegaly with hepatic steatosis. No acute process of the imaged upper abdomen. Unremarkable soft tissues. No acute fracture identified. Unchanged appearance of the mid and medial aspects of the right clavicle. Mild bridging osteophytic spurring throughout the thoracic spine. IMPRESSION: 1. Mild patchy left greater than right bibasilar nodular consolidative foci suggestive of bronchopneumonia. 2. No pulmonary emboli identified. 3. Hepatic steatosis. 4. No lymphadenopathy. ACT 112: Negative or not required by law. The above report was generated using voice recognition software. It may contain grammatical, syntax or spelling errors. Electronically signed by: Joseph Trujillo M.D. 12/20/2022 4:22 PM Hospital Course (1) Pneumonia: (2) Asthma: (3) Hypertension: (4) Paranoid schizophrenia: (5) Morbid obesity with BMI of 45.0-49.9, adult: Plan 37 yr male with H/O HTN, hypothyroidism, asthma, GERD, history of IBS, paranoid schizophrenia, sleep apnea and seasonal allergies who presents to ED secondary to cough x2 months. Bilateral bronchopneumonia Mild persistent asthma with mild exacerbation Hypoxia secondary to above, resolved CTA CHEST IMPRESSION: 1. Mild patchy left greater than right bibasilar nodular consolidative foci suggestive of bronchopneumonia. 2. No pulmonary emboli identified. 3. Hepatic steatosis. 4. No lymphadenopathy. Procalcitonin< 0.05 Sputum culture: Moderate normal jenaro Received IV ceftriaxone and doxycycline. Will discharge on p.o. cefdinir and p.o. doxycycline to complete a 7-day course. Received prednisone 40 mg daily, will discharge on prednisone 40 mg daily x3 days, prednisone 20 mg daily x3 days to complete 10-day taper. Continue Advair Weaned off of supplemental oxygen 2 step: Did not qualify for oxygen Patient requesting follow-up with [facility] Hypertension BP controlled throughout admission, continue HCTZ and lisinopril Paranoid schizophrenia Continue chlorpromazine Mood stable MICHELLE on BiPAP BiPAP Morbid obesity BMI 46.9 Encourage weight loss Elevated LFTs Mild AST and ALT elevation noted, likely due to hepatic steatosis Lifestyle modifications IBS-D Remained stable throughout admission, patient requesting follow-up with [facility] Total Time Total Time Spent Total Time Spent (In Minutes): 40 Discharge Plan Discharge Items Patient Disposition: Home - Self-Care Reason For Visit: cough Discharge Diagnosis: Pneumonia, Asthma Exacerbation Activity: As commented below Activity Comment: as tolerated, gradually increase Non-emergency contact: Primary Care Provider Call non-emergency contact if: you have any medication questions, your symptoms worsen, your pain is not controlled and you have a fever Follow-up/Referrals: [facility] [Provider Group] [facility] [Provider Group] Kenia Oseha DO [Primary Care Provider] - 12/28/22 11:00 am (Date & Time 12/28/2022 11:00 AM Provider Musa Darden III, MD Department [facility] ) Diet: Heart Healthy Addtl Attending Provider Instructions: You came to the hospital for evaluation of cough. You were found to have bilateral pneumonia and mild exacerbation of your asthma. You were treated with IV antibiotics and steroids while in the hospital. You will be discharged on oral antibiotics and oral steroids as follows: Prednisone 40 mg daily x 3 days then prednisone 20 mg daily x 3 days, then stop. Take first home dose tomorrow morning. Cefdinir 300 mg twice daily x 3 days and doxycycline 100 mg twice daily x 3 days. Take first home doses of both antibiotics this evening. Take a probiotic for the next 7 days -- a prescription has been sent to your pharmacy. Continue all other medications as previously prescribed. Referral request has been placed for [facility] pulmonary and [facility] per your request. A follow-up appointment has been made with your PCP office. It was a pleasure taking care of you. If you need to reach a member of the [facility] hospitalist team at [facility], please call [phone]. ODALIS Ferrer Pending Studies at Discharge: No Stand-Alone Forms: [facility], Work/School Release, Smoking Cessation Medications and DC Order Prescriptions: New doxycycline hyclate 100 mg Capsule 100 mg PO BID Qty: 7 0RF albuterol sulfate 2.5 mg /3 mL (0.083 %) solution for nebulization 2.5 mg inhalation Q6R PRN (Reason: shortness of breath or wheezing) Qty: 75 0RF Saccharomyces boulardii [Florastor] 250 mg Capsule 250 mg PO DAILY Qty: 7 0RF prednisone 20 mg Tablet 40 mg PO DAILY Qty: 9 0RF Rx Instructions: take 40mg daily x 3 days, then 20mg daily x 3 days, then stop cefdinir 300 mg capsule 300 mg PO BID Qty: 7 0RF Continued benzonatate 100 mg capsule 100 mg PO TID PRN (Reason: cough) Qty: 15 0RF multivitamin Tablet 1 tab PO QAM loperamide 2 mg Capsule 2 mg PO BID PRN (Reason: Diarrhea) lisinopril 20 mg Tablet 20 mg PO HS levothyroxine [Synthroid] 25 mcg Tablet 25 mcg PO QAM famotidine 20 mg Tablet 20 mg PO HS diphenhydramine HCl [Benadryl Allergy] 25 mg Tablet 25 mg PO HS PRN (Reason: sleep/allergy) albuterol sulfate 90 mcg/actuation Hfa Aerosol Inhaler 2 inh INHALATION Q4H PRN (Reason: sob) fluticasone propionate 50 mcg/actuation [place],Suspension 2 spray INTRANASAL HS diphenoxylate-atropine 2.5-0.025 mg tablet 1 tab PO QAM PRN (Reason: Diarrhea) chlorpromazine 50 mg tablet 50 mg PO HS hydrochlorothiazide 25 mg tablet 25 mg PO DAILY fluticasone propion-salmeterol [Advair Diskus] 250-50 mcg/dose blister with device 1 inh INHALATION BID Discharge Orders: Discharge Order (Routine); Ordered 12/24/22 Ordered By: Xochitl Singh/Other Patient Handouts: Chest and Lung Problems, Infec Common Resp Prevention Admission Data Admit Date/Time: 12/20/22 16:51 Attending Provider: Jeromy Herbert Admit Provider: Barbie Liz Primary Care Provider: Kenia Oshea Other Providers: Barbie Liz Other Interventions: Discharge Summary Assessment (RN) Last Done: 12/24/22 13:09 Supervising Physician Co-Signing Physician Notes Patient seen and examined at bedside as a follow-up of pneumonia and acute exacerbation of asthma. Patient reports improving cough and wheezing, on examination, patient on room air, no wheezing on auscultation, no increased breath sounds, heart and abdomen examination WNL, obesity class III, rest of the examination as above. Patient will be discharged on p.o. antibiotics cefdinir and doxycycline to complete the course. Also will be discharged on tapering dose of his steroid, patient to continue with his inhalation steroid as prior. Patient made aware. I have seen and examined the patient and have discussed the case with the provider above. I agree with the assessment and plan as stated.
== END 2022-12-24 14:53 | disposition home or self-care (01) | DRG 194 ==
LOC: ED 12:41 → 3W 16:51 → SUATTDRO 16:51 → 3W 19:32